=== PATIENT | female | born 1985 | race Caucasian/White ===

== ENCOUNTER 2016-09-22 07:09 | Emergency (ER) | payer BC, OTHER ==
[2016-09-22 07:30] VITALS: BP 110/69
[2016-09-22] MEDS ORDERED: Phenazopyridine TAB* 100 MG PO ONE (07:52)
[2016-09-22] MEDS ORDERED: Sulfamethox/Trimethoprim DS 800/160* TAB PO ONE (07:52)
--- NOTE | 2016-09-22 07:52 | UC ---
Pediatric GI/ HPI - HPI Summary HPI Summary: 31 yo female with frequency/urgency and incontenance x 1 in the past 4 days no fever, some chills mild nausea no vomiting no back pain hx pyelo no vag d/c or itch no dyspareunia - History Of Current Complaint Chief Complaint: UCGU Stated Complaint: UTI Time Seen by Provider: 09/22/16 07:36 Onset/Duration: Gradual Onset Pain Intensity: 0 - hurts when voiding and as bladder starts to fill Pain Scale Used: 0-10 Numeric Location: Discrete At: - suprapubic Associated Signs And Symptoms: Positive: Dysuria - Allergies/Home Medications Allergies/Adverse Reactions: Allergies Allergy/AdvReac Type Severity Reaction Status Date / Time Codeine Allergy Severe Hives Verified 09/22/16 07:21 Home Medications: Home Medications Fexofenadine-Pseudoephedrine [Dora-D 24 Hour Allergy 180-240 mg] 1 tab PO DAILY 09/22/16 [History Confirmed 09/22/16] Multiple Vitamin [Multiple Vitamins] 1 tab PO DAILY 09/22/16 [History Confirmed 09/22/16] Norethindr/Eth Estradiol(Nf) [Lo Loestrin Fe (NF)] 1 tab PO DAILY 09/22/16 [ History Confirmed 09/22/16] Past Medical History Previously Healthy: Yes - Family History Family History of Asthma: No Family History Of Seizure: No Review Of Systems Constitutional: Negative Eyes: Negative ENT: Negative Cardiovascular: Negative Respiratory: Negative Gastrointestinal: Negative Genitourinary: Dysuria Musculoskeletal: Negative Skin: Negative Neurological: Negative Psychological: Negative All Other Systems Reviewed And Are Negative: Yes Physical Exam Triage Information Reviewed: Yes Vital Signs: Initial Vital Signs Temp 98.9 F 09/22/16 07:23 Pulse 67 09/22/16 07:23 Resp 16 09/22/16 07:23 BP 110/69 09/22/16 07:23 Pulse Ox 100 09/22/16 07:23 Vital Signs Reviewed: Yes Appearance: Well-Appearing Eyes: Positive: Conjunctiva Clear ENT: Positive: Hearing grossly normal, TMs normal. Negative: Nasal congestion, Nasal drainage, Muffled/hoarse voice, Dental tenderness Respiratory: Positive: Lungs clear, Normal breath sounds, No respiratory distress, No accessory muscle use Cardiovascular: Positive: RRR, No Murmur Abdomen Description: Negative: Nontender - slight suprapubic tenderness Musculoskeletal: Positive: Strength Intact, ROM Intact Neurological: Positive: Normal Psychological: Positive: Normal Pediatric GI Course/Dx - Differential Dx/Diagnosis Provider Diagnoses: dysuria. suspect UTI Discharge - Discharge Plan Condition: Stable Disposition: HOME Prescriptions: Phenazopyridine TAB* [Pyridium 100 mg TAB*] 100 mg PO TID #6 tab Sulfamethox/Trimethoprim DS* [Bactrim DS 800/160 TAB*] 1 tab PO BID #13 tab Patient Education Materials: Dysuria (ED) Referrals: ODETTE Baez [Primary Care Provider] - 3 Days (if not better) Additional Instructions: I suspect a UTI despite your unremarkable urinalysis a culture is pending recheck for new or worsening symptoms or if not better in 2-3 days
== END 2016-09-22 08:06 | disposition home or self-care (01) ==
LOC: UCCORT 07:09
DX: R30.0 Dysuria (principal); R35.0 Frequency of micturition; Z32.02 Encounter for pregnancy test, result negative; Z88.5 Allergy status to narcotic agent
CPT/HCPCS: 81003; 84702; 87077; 87086; 87186; 99202; A9270-GY; G0463

== ENCOUNTER 2016-12-11 12:52 | Emergency (ER) | payer OTHER ==
[2016-12-11] MEDS ORDERED: Ibuprofen TAB* 600 MG PO ONE (13:24)
--- NOTE | 2016-12-11 13:24 | UC ---
Hand/Wrist HPI - HPI Summary HPI Summary: caught left thumb in a van door at work Laceration across vertical across knuckle of thumb - History Of Current Complaint Chief Complaint: UCUpperExtremity Stated Complaint: HAND INJURY Time Seen by Provider: 12/11/16 13:19 Hx Obtained From: Patient Hx Last Menstrual Period: unknown ?: No Mechanism Of Injury: crush injury left thumb Onset/Duration: Gradual Onset, Lasting Hours, Resolved Severity Initially: Moderate Severity Currently: Moderate Pain Intensity: 6 Pain Scale Used: 0-10 Numeric Character Of Pain: Aching, Throbbing Aggravating Factor(s): Movement Alleviating: Rest, Ice Associated Signs And Symptoms: Positive: Negative Related History: Dominant Hand Right - Allergies/Home Medications Allergies/Adverse Reactions: Allergies Allergy/AdvReac Type Severity Reaction Status Date / Time Codeine Allergy Severe Hives Verified 09/22/16 07:21 PMH/Surg Hx/FS Hx/Imm Hx Previously Healthy: Yes - Surgical History Surgical History: Yes Surgery Procedure, Year, and Place: - Family History Known Family History: Positive: None - Social History Occupation: Employed Full-time Lives: With Family Alcohol Use: None Substance Use Type: None Smoking Status (MU): Former Smoker Have You Smoked in the Last Year: No When Did the Patient Quit Smoking/Using Tobacco: 2012 - Immunization History Most Recent Tetanus Shot: up to date Review of Systems Constitutional: Negative Skin: Negative - 3 cm lacerration to thumb, Other Eyes: Negative ENT: Negative Respiratory: Negative Cardiovascular: Negative Gastrointestinal: Negative Genitourinary: Negative Motor: Negative Neurovascular: Negative Musculoskeletal: Negative Neurological: Negative Psychological: Negative All Other Systems Reviewed And Are Negative: Yes Physical Exam Triage Information Reviewed: Yes Appearance: Well-Appearing, No Pain Distress, Well-Nourished Vital Signs: Initial Vital Signs Temp 98.2 F 12/11/16 13:09 Pulse 98 12/11/16 13:09 Resp 18 12/11/16 13:09 BP 112/91 12/11/16 13:09 Vital Signs Reviewed: Yes Eye Exam: Normal Eyes: Positive: Conjunctiva Clear ENT Exam: Normal ENT: Positive: Normal ENT inspection, Hearing grossly normal. Negative: Nasal congestion, Nasal drainage, Trismus, Muffled/hoarse voice Dental Exam: Normal Neck exam: Normal Neck: Positive: Supple, Nontender Respiratory Exam: Normal Respiratory: Positive: Chest non-tender, No respiratory distress, No accessory muscle use Cardiovascular Exam: Normal Cardiovascular: Positive: RRR, Pulses Normal, Brisk Capillary Refill Musculoskeletal Exam: Normal Musculoskeletal: Positive: Strength Intact, ROM Intact, No Edema Neurological Exam: Normal Neurological: Positive: Alert, Muscle Tone Normal Psychological Exam: Normal Skin Exam: Normal Skin: Positive: Other - 3 cm laceration 1 mm deep, 1 mm wide- Diagnostics - Radiology No standard instances Xray Interpretation: Positive (See Comments) - negative exam Radiology Interpretation Completed By: ED Physician Hand/Wrist Course/Dx - Course Course Of Treatment: steri strip and dressing applied with splint pat rommel well n /m/c intact before and after application, follow with ortho prn - Differential Dx/Diagnosis Differential Diagnosis/HQI/PQRI: Contusion, Fracture, Sprain, Strain Provider Diagnoses: Crush injury with laceration to left thumb Discharge - Discharge Plan Condition: Stable Disposition: HOME Patient Education Materials: Ibuprofen (By mouth), Skin Avulsion (ED), RICE Therapy (ED), Crush Injury (ED) Referrals: ODETTE Baez [Primary Care Provider] - If Needed
--- NOTE | 2016-12-11 14:16 | RAD ---
INDICATION: Right thumb crush injury COMPARISON: None TECHNIQUE: AP, lateral, and oblique views were obtained. FINDINGS: The bony structures, joint spaces, and soft tissues are normal for age. IMPRESSION: NEGATIVE EXAMINATION.
[2016-12-11] MEDS ORDERED: Benzoin Compound STICK TOPICAL ONE (14:29)
[2016-12-11] MEDS ORDERED: Benzoin Compound STICK ONE (14:31)
[2016-12-11 15:23] VITALS: BP 108/86
== END 2016-12-11 15:15 | disposition home or self-care (01) ==
LOC: UCEAST 12:52
DX: S67.02XA Crushing injury of left thumb, initial encounter (principal); Z88.5 Allergy status to narcotic agent; Z87.891 Personal history of nicotine dependence; W23.0XXA Caught, crushed, jammed, or pinched between moving objects, initial encounter
CPT/HCPCS: 99213; A9270-GY; G0463

== ENCOUNTER 2018-07-05 15:14 | Inpatient (IN) | payer OTHER ==
--- NOTE | 2018-07-05 16:33 | PN ---
L&D Outpatient: Visit - Reproductive Information Estimated Due Date: 08/03/18 Gestational Age: 35 Weeks and 6 Days : 2 Para: 1 - Reason for Visit Visit Reason: vaginal bleeding - Antepartal Records Antepartal Record: Reviewed, Complicated by: - prior H/o depression anxiety positive toxicology screen echogenic bowel - Patient History Patient History Significant: Yes Patient History Significant For: depression anxiety migraines ulcers Review of Systems Constitutional: Comfortable CV Complaint: No Respiratory: Shortness of Breath: No Gastrointestinal: No Nausea/Vomiting Genitourinary: No Dysuria, No Bleeding, No Leaking Fluid Musculoskeletal: No Complaint Neurological: No Headache Movement: Normal L&D Outpatient: Exam Vitals - Most Recent: T : 97.2 BP : 123/82 P: 80 RR : 20 - Cervical Exam Cervical Exam: 50/-3 blood on exam glove dark - Abdominal Exam Abdomen Exam: Non-Tender - Membranes Membrane Status: Intact - Ultrasound/Biophysical Profile Ultrasound Status: Radiology Department Full Exam EFM Findings - External Monitor Findings Baseline Heart Rate: 140 External Monitor Findings: Accelerations Present, No Pattern of Variable or Late Decelerations, Variability Moderate L&D Outpatient: Asses/Plan Assessment: Pt 33 yo presents with bleeding spontaneous this AM. Pt denies any leaking of fluid or contractions. Pt with H/o prior section. Plan: Continue Observation - Plan is to have formal US to evluate for abruption and will send in KB along with CBC. GBS sent. Pt agrees to urinalysis and urine drug screen given premature bleeding. Pt notes some achy joints so will also assure not flu positive.
[2018-07-05 16:38] LABS: ABS Basophils 0 10^3/ul (0-0.2); ABS Eosinophils 0.1 10^3/ul (0-0.6); ABS Lymphocytes 1.5 10^3/ul (1.0-4.8); ABS Monocytes 0.5 10^3/ul (0-0.8); ABS Neutrophils 4.9 10^3/ul (1.5-7.7); ABS Nucleated RBC 0 10^3/ul; Eosinophil % 1.3 %; Hematocrit 38 % (33-41); Hemoglobin 12.5 g/dL (12.0-16.0); Lymphocyte % 21.1 %; Mean Corpuscular HGB Conc 33 g/dL (31-36); Mean Corpuscular Hemoglobin 30 pg (27-31); Mean Corpuscular Volume 90 fL (80-97); Mean Platelet Volume 8.7 fL (7.4-10.4); Nucleated Red Blood Cells % 0; Platelet Count 238 10^3/uL (150-450); Red Cell Distribution Width 14 % (10.5-15)
[2018-07-05 16:46] LABS: Urine Appearance Clear; Urine Bacteria Absent (Absent); Urine Bilirubin Negative (Negative); Urine Blood 3+ (Negative); Urine Color Amber; Urine Glucose Negative (Negative); Urine Ketones Negative (Negative); Urine Nitrite Negative (Negative); Urine Protein Negative (Negative); Urine Red Blood Cell Trace(0-2/hpf) (Absent); Urine Specific Gravity 1.003 (1.010-1.030); Urine Squamous Epithelial Cell Present (Absent); Urine Urobilinogen Negative (Negative); Urine White Blood Cell Trace(0-5/hpf) (Absent)
[2018-07-05 16:57] LABS: Influenza A Molecular NEGATIVE (Negative); Influenza B Molecular NEGATIVE (Negative)
[2018-07-05 17:00] LABS: Barbiturates Urine Screen None Detected (None Detect); Benzodiazepine Urine Screen None Detected (None Detect); Urine Cannabinoids Screen None Detected (None Detect)
[2018-07-05] MEDS ORDERED: Lactated Ringers 1000 ML Bag* 1,000 ML IV ONE (21:44)
[2018-07-05] MEDS ORDERED: Buffered Lidocaine 1% SYRIN* 1 ML/SYRINGE INTRADERM ONE (21:44)
[2018-07-05] MEDS ORDERED: Penicillin G Potassium IV* 5,000,000 UNITS in NS 0.9% 100 ML* 100 ML IVPB ONE (22:00)
[2018-07-05] MEDS: Lactated Ringers 1000 ML Bag* 1,000 ML IV SCH (22:07)
--- NOTE | 2018-07-05 22:07 | HP ---
General Information - Reason for Visit vaginal bleeding / positive ROM + - General Information Maternal Age: 33 Grav: 2 Para: 1 SAB: 0 IEA: 0 Estimated Due Date: 08/03/18 Determined By: LMP Gestational Age in Weeks/Days: 35 6/7 Maternal Blood Type and Rh: A Positive - Results this Serology/RPR Result: Non-Reactive Rubella Result: Immune HBsAg Result: Negative HIV Result: Negative Past Medical History Delivery History: Hx C/Section Pertinent Past Medical History: See Records Pertinent Past Surgical History: See Records Pertinent Family History: See Records - Antepartal Records Antepartal Records: Reviewed, Complicated by: - p prom/ prior section Review of Systems Constitutional: Comfortable CV Complaint: No Respiratory: Shortness of Breath: No Gastrointestinal: No Nausea/Vomiting Genitourinary: No Dysuria, No Bleeding, No Leaking Fluid Musculoskeletal: No Complaint Neurological: No Headache Movement: Normal Exam Allergies/Adverse Reactions: Allergies codeine Allergy (Severe, Verified 05/01/18 01:29) Hives T ; 97.2 P ; 90 BP ; 120/70 RR ; 20 Lab Values - Entire Visit: Laboratory Tests 07/05/18 07/05/18 07/05/18 16:15 16:15 16:15 WBC 7.0 RBC 4.20 Hgb 12.5 Hct 38 MCV 90 MCH 30 MCHC 33 RDW 14 Plt Count 238 MPV 8.7 Neut % (Auto) 70.5 Lymph % (Auto) 21.1 [place] % (Auto) 6.8 Eos % (Auto) 1.3 Baso % (Auto) 0.3 Absolute Neuts (auto) 4.9 Absolute Lymphs (auto) 1.5 Absolute Monos (auto) 0.5 Absolute Eos (auto) 0.1 Absolute Basos (auto) 0 Absolute Nucleated RBC 0 Nucleated RBC % 0 Urine Color Salma Urine Appearance Clear Urine pH 7.0 Ur Specific [place] 1.003 L Urine Protein Negative Urine Ketones Negative Urine Blood 3+ A Urine Nitrate Negative Urine Bilirubin Negative Urine Urobilinogen Negative Ur Leukocyte Esterase Negative Urine WBC (Auto) Trace(0-5/hpf) Urine RBC (Auto) Trace(0-2/hpf) Ur Squamous Epith Cells Present A Urine Bacteria Absent Urine Glucose Negative Vag Amniotic Fld Detect Urine Opiates Screen Ur Barbiturates Screen Ur Phencyclidine Scrn Ur Amphetamines Screen U Benzodiazepines Scrn Urine Cocaine Screen U Cannabinoids Screen Influenza A (Rapid) Influenza B (Rapid) KB Hemoglobin 0.000 07/05/18 07/05/18 07/05/18 16:15 16:45 21:20 WBC RBC Hgb Hct MCV MCH MCHC RDW Plt Count MPV Neut % (Auto) Lymph % (Auto) [place] % (Auto) Eos % (Auto) Baso % (Auto) Absolute Neuts (auto) Absolute Lymphs (auto) Absolute Monos (auto) Absolute Eos (auto) Absolute Basos (auto) Absolute Nucleated RBC Nucleated RBC % Urine Color Urine Appearance Urine pH Ur Specific [place] Urine Protein Urine Ketones Urine Blood Urine Nitrate Urine Bilirubin Urine Urobilinogen Ur Leukocyte Esterase Urine WBC (Auto) Urine RBC (Auto) Ur Squamous Epith Cells Urine Bacteria Urine Glucose Vag Amniotic Fld Detect Positive Urine Opiates Screen None detected Ur Barbiturates Screen None detected Ur Phencyclidine Scrn None detected Ur Amphetamines Screen None detected U Benzodiazepines Scrn None detected Urine Cocaine Screen None detected U Cannabinoids Screen None detected Influenza A (Rapid) Negative Influenza B (Rapid) Negative KB Hemoglobin - Measurements Height: 5 ft 9 in Weight: 179 lb Weight in lbs: 179.355244 Body Mass Index (BMI): 26.4 Pre- Weight: 128 lb Weight Gained This : 51 lbs and 0 ozs - Exam Breast: Breast Exam Deferred CVA: No CVA Tenderness Extremities: No Edema Heart: Normal Rhythm/Heart Sounds HEENT: No Significant Findings Lungs: Clear Bilaterally Rectal: Rectal Exam Deferred Reflexes: DTR 2+ Targeted Exam Findings Cervical Exam: 1cm Effacement: 50% Station: -1 Presenting Part: Vertex Membrane Status: SROM Amniotic Fluid Evaluation: Positive ROM Plus EFM Findings - External Monitor Findings Baseline Heart Rate: 140 External Monitor Findings: Accelerations Present, No Pattern of Variable or Late Decelerations, Variability Moderate Contractions: Irregular - mild q 5-7 ' Assessment/Plan - Assessment Pt 33 yo G 2 P 1001 at 35 6/7 weeks with pPROM and unknown GBS with prioir delviery for arrest d/o. Pt desires trial of labor afte section. - Obstetrical Risk Factors Obstetrical Risk Factors: GBS Unknown, - Plan Plan: Antibiotic Prophylaxis, Admit - Anticipate Vaginal Delivery Plan Comment: Pt 33 yo at 35 6/7 weeks with premature rupture of membranes and desires trial of labor after section. Pt accepts risk of thacker bulb use to include infection and accepts risks of trial of labor after section to include but not limited to infection ,bleeding ,need for blood products, uterine rupture and risk of hysterectomy, Pt also acknowledges that risk include permanent negative effect on outcome including poor mental capacity and cerebral palsy. Consent for signed and reviewed for trial of labor after section.
[2018-07-06] MEDS: Lactated Ringers 1000 ML Bag* 1,000 ML IV SCH ×2 (01:00→06:15)
[2018-07-06] MEDS ORDERED: OBEPIDURAL* 250 ML EPIDURAL ONE (01:34)
[2018-07-06] MEDS: Penicillin G Potassium IV* 2,500,000 UNITS in NS 0.9% 100 ML* 100 ML IVPB SCH ×2 (02:08→06:14)
[2018-07-06] MEDS ORDERED: Famotidine TAB* 20 MG PO PRN (04:58)
[2018-07-06] MEDS ORDERED: Lactated Ringers 1000 ML Bag* 500 ML IV PRN (04:58)
[2018-07-06] MEDS ORDERED: Phenylephrine IV* 40 MCG/ML 10 ML SYRINGE IV PUSH PRN ×2 (04:58)
[2018-07-06] MEDS ORDERED: Sodium Citrate/Citric Acid* 15 ML UDC PO PRN (04:58)
[2018-07-06] MEDS ORDERED: Famotidine IV* 10 MG/ML 2 ML (20 mg) IV PRN (04:58)
[2018-07-06] MEDS ORDERED: Lactated Ringers 1000 ML Bag* 1,000 ML IV ONE (04:58)
[2018-07-06] MEDS ORDERED: OBEPIDURAL* 250 ML EPIDURAL SCH (05:00)
[2018-07-06] MEDS ORDERED: Lactated Ringers 1000 ML Bag* 1,000 ML IV SCH ×3 (05:00→11:00)
[2018-07-06] MEDS ORDERED: Oxytocin in LR* 20 UNITS/1,000 ML BAG IVPB ONE (08:52)
[2018-07-06] MEDS ORDERED: Glycerin ADULT SUPP PR PRN (10:40)
[2018-07-06] MEDS ORDERED: OXYTOCIN* 10 UNITS/ML 1 ML VIAL IM ONE (10:40)
[2018-07-06] MEDS ORDERED: Witch Hazel PAD* JAR TOPICAL PRN (10:40)
[2018-07-06] MEDS ORDERED: Dibucaine 1% 28.35 GM TUBE PR PRN (10:40)
--- NOTE | 2018-07-06 10:40 | PROCNOTE ---
[facility] OB: Delivery Note - Delivery A Date of : 07/06/18 Time of : 09:39 [place] Sex: Female Weight at : 4 lb 7 oz Score 1 Minute: 9 Score 5 Minutes: 9 Gestational Age in Weeks and Days at Delivery: 36 Weeks and 0 Days Delivery Method: Spontaneous Vaginal Labor: Spontaneous Did Patient attempt ?: Yes, Successful Amniotic Fluid: Clear Estimated Blood Loss: 400 Anesthesia/Analgesia: CEI for Labor Delivered By: Rebecca Cash - Nursery Level of Nursery: Regular/Bedside - Perineum Perineal Injury: None/Intact Perineal Repair: None - Events Delivery Events of Note: Pitocin Only After Delivery, Full Course of Antibiotics
[2018-07-06] MEDS ORDERED: Oxytocin in LR* 20 UNITS/1,000 ML BAG IVPB SCH (11:00)
[2018-07-06] MEDS ORDERED: Simethicone TAB* 80 MG TAB.CHEW PO SCH (12:30)
[2018-07-06] MEDS ORDERED: Lidocaine 1% INJ* 10 MG/ML 30 ML SDV ONE (13:24)
[2018-07-06] MEDS ORDERED: Lidocaine 1%* 5 ML VIAL ONE (13:26)
[2018-07-06] MEDS: Docusate CAP* 100 MG PO SCH ×2 (14:05→21:27)
[2018-07-06] MEDS: Ibuprofen TAB* 600 MG PO PRN ×2 (14:40→21:27)
[2018-07-06] MEDS: Prenatal Vitamin TAB PO SCH (19:07)
[2018-07-07] MEDS: Acetaminophen TAB* 325 MG PO PRN ×3 (01:52→21:46)
[2018-07-07] MEDS: Ibuprofen TAB* 600 MG PO PRN ×3 (05:27→17:44)
[2018-07-07 08:30] LABS: ABS Basophils 0 10^3/ul (0-0.2); ABS Eosinophils 0.1 10^3/ul (0-0.6); ABS Lymphocytes 1.2 10^3/ul (1.0-4.8); ABS Monocytes 0.4 10^3/ul (0-0.8); ABS Neutrophils 7.5 10^3/ul (1.5-7.7); ABS Nucleated RBC 0 10^3/ul; Eosinophil % 0.6 %; Hematocrit 36 % (33-41); Lymphocyte % 13.5 %; Mean Corpuscular HGB Conc 34 g/dL (31-36); Mean Corpuscular Hemoglobin 30 pg (27-31); Mean Corpuscular Volume 89 fL (80-97); Mean Platelet Volume 8.3 fL (7.4-10.4); Nucleated Red Blood Cells % 0; Platelet Count 220 10^3/uL (150-450); Red Blood Count 4.01 10^6 /uL (3.70-4.87); Red Cell Distribution Width 14 % (10.5-15); White Blood Count 9.2 10^3/uL (3.5-10.8)
[2018-07-07] MEDS ORDERED: Ferrous Gluconate TAB* 324 MG TAB PO SCH (09:00)
[2018-07-07] MEDS: Docusate CAP* 100 MG PO SCH ×3 (09:14→21:46)
[2018-07-07] MEDS: Prenatal Vitamin TAB PO SCH (09:14)
[2018-07-08] MEDS: Ibuprofen TAB* 600 MG PO PRN ×2 (01:15→09:10)
[2018-07-08] MEDS: Acetaminophen TAB* 325 MG PO PRN (06:46)
[2018-07-08 07:49] VITALS: BP 122/85
[2018-07-08] MEDS: Prenatal Vitamin TAB PO SCH (09:10)
[2018-07-08] MEDS: Docusate CAP* 100 MG PO SCH (09:10)
== END 2018-07-08 13:35 | disposition home or self-care (01) | DRG 560 ==
LOC: MCHOBOUT 15:14 → MCHOB 22:02
PROVIDERS: ADMIT Obstetrics & Gynecology; ATTEND Obstetrics & Gynecology
PROC: 10E0XZZ Delivery of Products of Conception, External Approach (ICD-10-PCS; principal; 2018-07-06)
PROC: 4A1HXCZ Monitoring of Products of Conception, Cardiac Rate, External Approach (ICD-10-PCS; 2018-07-06)
DX: O42.013 Preterm premature rupture of membranes, onset of labor within 24 hours of rupture, third trimester (principal); Z37.0 Single live birth; O34.211 Maternal care for low transverse scar from previous cesarean delivery; O43.123 Velamentous insertion of umbilical cord, third trimester; O75.89 Other specified complications of labor and delivery; J32.9 Chronic sinusitis, unspecified; Z88.5 Allergy status to narcotic agent; Z3A.35 35 weeks gestation of pregnancy
CPT/HCPCS: 36415; 76815; 80307; 81003; 81015; 83030; 84112; 85025; 86850; 86900; 86901; 87070; 87086; 88307; A9270-GY; J2540; J2590

== ENCOUNTER 2018-12-25 18:41 | Emergency (ER) | payer OTHER ==
[2018-12-25 18:55] VITALS: BP 125/76
--- NOTE | 2018-12-25 19:09 | UC ---
Skin Complaint HPI - HPI Summary HPI Summary: 33 yo female presents with redness and swelling to left thigh. She tells me that about a week ago she noticed a small red pustule on her left anterior thigh that she squeezed and drained a yellow pus. Since that time the area has gotten more firm and red with some warmth. She has not been applying anything OTC or cool/warm compresses. Denies fever or chills. - History of Current Complaint Chief Complaint: UCSkin Time Seen by Provider: 12/25/18 19:09 Stated Complaint: SKIN COMPLAINT Hx Obtained From: Patient Hx Last Menstrual Period: 12/20/2018 Onset/Duration: Gradual Onset Onset Severity: Mild Current Severity: Moderate Pain Intensity: 5 Pain Scale Used: 0-10 Numeric - Allergy/Home Medications Allergies/Adverse Reactions: Allergies Allergy/AdvReac Type Severity Reaction Status Date / Time codeine Allergy Severe Hives Verified 05/01/18 01:29 Home Medications: Home Medications Escitalopram Oxalate [Lexapro 10 mg] 12/25/18 [History] Multivitamin [One-Daily Multi-Vitamin] 1 each PO 12/25/18 [History] PMH/Surg Hx/FS Hx/Imm Hx Psychological History: Anxiety, Depression - Surgical History Surgical History: Yes Surgery Procedure, Year, and Place: - Family History Known Family History: Positive: None Negative: Cardiac Disease, Hypertension, Diabetes - Social History Occupation: Employed Full-time Lives: With Family Alcohol Use: None Substance Use Type: None Smoking Status (MU): Light Every Day Tobacco Smoker Have You Smoked in the Last Year: No When Did the Patient Quit Smoking/Using Tobacco: 2012 - Immunization History Most Recent Influenza Vaccination: 05/13/18 Most Recent Tetanus Shot: up to date Most Recent Pneumonia Vaccination: never Review of Systems All Other Systems Reviewed And Are Negative: No Constitutional: Positive: Negative Skin: Positive: Rash Respiratory: Positive: Negative Cardiovascular: Positive: Negative Neurological: Positive: Negative Psychological: Positive: Negative Physical Exam - Summary Physical Exam Summary: GENERAL: NAD. WDWN. No pain distress. SKIN: LEFT anterior thigh: Large ~17.0cm area of mild erythema with central 2.0cm oval shaped firmness and slight tenderness. No fluctuance, induration, or open wound, or drainage. NECK: Supple. Nontender. No lymphadenopathy. CHEST: No accessory muscle use. Breathing comfortably and in no distress. CV: Pulses intact. Cap refill <2seconds NEURO: Alert. PSYCH: Age appropriate behavior. Triage Information Reviewed: Yes Vital Signs: Initial Vital Signs Temp 99.5 F 12/25/18 18:48 Pulse 93 12/25/18 18:48 Resp 16 12/25/18 18:48 BP 125/76 12/25/18 18:48 Pulse Ox 98 12/25/18 18:48 Vital Signs Reviewed: Yes Course/Dx - Course Course Of Treatment: Abscess with cellulitis left thigh. Will start her on Augmentin and advised to return if the area comes to a head or becomes more firm/red/tender for I&D - Diagnoses Provider Diagnosis: Abscess of left thigh Discharge ED - Sign-Out/Discharge Documenting (check all that apply): Patient Departure All imaging exams completed and their final reports reviewed: No Studies - Discharge Plan Condition: Stable Disposition: HOME Prescriptions: Amoxicillin/Clavulanate TAB* [Augmentin TAB 875*] 875 mg PO BID #14 tab Patient Education Materials: Cellulitis (DC), Abscess (ED) Referrals: Leonid Franklin PA [Primary Care Provider] - Additional Instructions: If you develop a fever, shortness of breath, chest pain, new or worsening symptoms - please call your PCP or go to the ED immediately. If the area comes to a head or becomes more tense/firm - please return to have this drained - Billing Disposition and Condition Condition: STABLE Disposition: Home
== END 2018-12-25 19:22 | disposition home or self-care (01) ==
LOC: UCEAST 18:41
DX: L02.416 Cutaneous abscess of left lower limb (principal); F41.9 Anxiety disorder, unspecified; F32.9 Major depressive disorder, single episode, unspecified; F17.210 Nicotine dependence, cigarettes, uncomplicated; Z88.5 Allergy status to narcotic agent
CPT/HCPCS: 99212; G0463

== ENCOUNTER 2019-02-20 13:48 | Emergency (ER) | payer OTHER ==
[2019-02-20 13:58] VITALS: BP 116/78
--- NOTE | 2019-02-20 14:07 | UC ---
FLU HPI - HPI Summary HPI Summary: 4 days of worsening congestion, body aches, feverish, cough, sore throat-- children with similar symptoms last week - History of Current Complaint Chief Complaint: UCGeneralIllness Stated Complaint: FLU SYMPTOMS Time Seen by Provider: 02/20/19 14:00 Hx Obtained From: Patient Hx Last Menstrual Period: 02/08/19 ?: No Onset/Duration: Sudden Onset, Lasting Days - 4 Severity Currently: Mild Severity Initially: Mild Pain Intensity: 4 Pain Scale Used: 0-10 Numeric Associated Signs & Symptoms: Positive: Fever, Myalgia, Cough, Sore Throat, Nasal Congestion, Headache - Allergy/Home Medications Allergies/Adverse Reactions: Allergies Allergy/AdvReac Type Severity Reaction Status Date / Time codeine Allergy Severe Hives Verified 02/20/19 13:51 Home Medications: Home Medications Loratadine/Pseudoephedrine [Claritin-D 24 Hour Tablet] 1 tab PO DAILY 02/20/19 [ History Confirmed 02/20/19] Norethindrone-E.estradiol-Iron [Lo Loestrin Fe 1-10 Tablet] 1 each PO DAILY 06/09 [History Confirmed 02/20/19] PMH/Surg Hx/FS Hx/Imm Hx Previously Healthy: No Psychological History: Depression - Surgical History Surgical History: Yes Surgery Procedure, Year, and Place: - Family History Known Family History: Positive: None Negative: Cardiac Disease, Hypertension, Diabetes - Social History Occupation: Employed Full-time Lives: With Family Alcohol Use: None Substance Use Type: None Smoking Status (MU): Light Every Day Tobacco Smoker Amount Used/How Often: 4-5 cigs/ day Have You Smoked in the Last Year: No When Did the Patient Quit Smoking/Using Tobacco: 2012 - Immunization History Most Recent Influenza Vaccination: 05/13/18 Most Recent Tetanus Shot: up to date Most Recent Pneumonia Vaccination: never Review of Systems All Other Systems Reviewed And Are Negative: Yes Constitutional: Positive: Fever, Chills, Fatigue Skin: Positive: Negative Eyes: Positive: Negative ENT: Positive: Sore Throat, Ear Ache, Nasal Discharge, Sinus Congestion, Sinus Pain/Tenderness Respiratory: Positive: Cough Cardiovascular: Positive: Negative Gastrointestinal: Positive: Negative Genitourinary: Positive: Negative Motor: Positive: Negative Neurovascular: Positive: Negative Musculoskeletal: Positive: Arthralgia, Myalgia Neurological: Positive: Headache Psychological: Positive: Negative Is Patient Immunocompromised?: No Physical Exam Triage Information Reviewed: Yes Appearance: No Pain Distress, Well-Nourished, Ill-Appearing - mild Vital Signs: Initial Vital Signs Temp 99.4 F 02/20/19 13:53 Pulse 103 02/20/19 13:53 Resp 18 02/20/19 13:53 BP 116/78 02/20/19 13:53 Pulse Ox 98 02/20/19 13:53 Vital Signs Reviewed: Yes Eye Exam: Normal Eyes: Positive: Conjunctiva Clear ENT Exam: Normal ENT: Positive: Normal ENT inspection, Hearing grossly normal, Pharynx normal, Nasal congestion, Nasal drainage, TMs normal, Sinus tenderness, Uvula midline. Negative: Tonsillar swelling, Tonsillar exudate, Trismus, Muffled voice, Hoarse voice, Dental tenderness Dental Exam: Normal Neck exam: Normal Neck: Positive: Supple, Nontender, No Lymphadenopathy Respiratory Exam: Normal Respiratory: Positive: Chest non-tender, Lungs clear, Normal breath sounds, No respiratory distress, No accessory muscle use Cardiovascular Exam: Normal Cardiovascular: Positive: RRR, No Murmur, Pulses Normal, Brisk Capillary Refill Musculoskeletal Exam: Normal Musculoskeletal: Positive: Strength Intact, ROM Intact, No Edema Neurological Exam: Normal Neurological: Positive: Alert, Muscle Tone Normal Psychological Exam: Normal Skin Exam: Normal Diagnostics - Laboratory Lab Results: Influenza A/B (-) Flu Course/Dx - Course Course Of Treatment: flonase , Augmentin, continue otc medications for sx relief follow with pc prn - Differential Dx/Diagnosis Provider Diagnosis: Acute sinusitis Discharge ED - Sign-Out/Discharge Documenting (check all that apply): Patient Departure All imaging exams completed and their final reports reviewed: No Studies - Discharge Plan Condition: Stable Disposition: HOME Prescriptions: Amoxicillin/Clavulanate TAB* [Augmentin TAB 875*] 875 mg PO BID #20 tab Fluticasone NASAL SPRAY 50MCG* [Flonase NASAL SPRAY 50MCG*] 2 spray BOTH NARES DAILY #1 btl Patient Education Materials: Sinusitis (ED), How to Use Nasal Success (ED) Referrals: Leonid Franklin PA [Primary Care Provider] - If Needed - Billing Disposition and Condition Condition: STABLE Disposition: Home
[2019-02-20 14:21] LABS: Influenza A Molecular NEGATIVE (Negative); Influenza B Molecular NEGATIVE (Negative)
== END 2019-02-20 14:40 | disposition home or self-care (01) ==
LOC: UCEAST 13:48
DX: J01.90 Acute sinusitis, unspecified (principal); R05 Cough; J02.9 Acute pharyngitis, unspecified; M79.10 Myalgia, unspecified site; F17.210 Nicotine dependence, cigarettes, uncomplicated; Z88.5 Allergy status to narcotic agent
CPT/HCPCS: 99212; G0463

== ENCOUNTER 2019-04-21 09:31 | Emergency (ER) | payer OTHER ==
[2019-04-21 09:42] VITALS: BP 107/68
--- NOTE | 2019-04-21 09:55 | UC ---
Throat Pain/Nasal Elliot HPI - HPI Summary HPI Summary: 34 yo woman with 2 day hx of sore throat, dysphagia, chills and sweats. No significant cough. + headache, no vomiting or doarrea. her son had strep last week. Works as a mailing manager. - History of Current Complaint Chief Complaint: UCRespiratory Stated Complaint: SORE THROAT CHILLS BODYACHES Time Seen by Provider: 04/21/19 09:41 Hx Obtained From: Patient Hx Last Menstrual Period: 02/08/19 Onset/Duration: Sudden Onset, Lasting Days - 2 Severity: Moderate Pain Intensity: 8 Cough: None Associated Signs & Symptoms: Positive: Dysphagia, Fever - Epiglottits Risk Factors Epiglottis Risk Factors: Negative - Allergies/Home Medications Allergies/Adverse Reactions: Allergies Allergy/AdvReac Type Severity Reaction Status Date / Time codeine Allergy Severe Hives Verified 04/21/19 09:42 PMH/Surg Hx/FS Hx/Imm Hx Previously Healthy: Yes Psychological History: Depression - Surgical History Surgical History: Yes Surgery Procedure, Year, and Place: - Family History Known Family History: Positive: None, Non-Contributory Negative: Cardiac Disease, Hypertension, Diabetes - Social History Occupation: Employed Full-time Lives: With Family Alcohol Use: None Substance Use Type: None Smoking Status (MU): Light Every Day Tobacco Smoker Amount Used/How Often: 4-5 cigs/ day Have You Smoked in the Last Year: No When Did the Patient Quit Smoking/Using Tobacco: 2012 - Immunization History Most Recent Influenza Vaccination: 05/13/18 Most Recent Tetanus Shot: up to date Most Recent Pneumonia Vaccination: never Review of Systems All Other Systems Reviewed And Are Negative: Yes Constitutional: Positive: Fever, Chills, Fatigue Skin: Positive: Negative Eyes: Positive: Negative ENT: Positive: Sore Throat Respiratory: Positive: Negative Cardiovascular: Positive: Negative Gastrointestinal: Positive: Negative Genitourinary: Positive: Negative Motor: Positive: Negative Neurovascular: Positive: Negative Musculoskeletal: Positive: Myalgia Neurological: Positive: Headache Psychological: Positive: Negative Is Patient Immunocompromised?: No Physical Exam Triage Information Reviewed: Yes Appearance: Ill-Appearing, Thin Vital Signs: Initial Vital Signs Temp 99.7 F 04/21/19 09:38 Pulse 97 04/21/19 09:38 Resp 18 04/21/19 09:38 BP 107/68 04/21/19 09:38 Pulse Ox 96 04/21/19 09:38 ENT: Positive: Pharyngeal erythema, TMs normal, Tonsillar swelling, Tonsillar exudate Neck: Positive: Supple, Nontender, Enlarged Nodes @ - bilateral tonsillar nodes enlarged. Respiratory: Positive: Lungs clear, Normal breath sounds Cardiovascular: Positive: RRR, No Murmur Musculoskeletal Exam: Normal Neurological Exam: Normal Psychological Exam: Normal Skin Exam: Normal Diagnostics - Laboratory Lab Results: rapid strep positive Throat Pain/Nasal Course/Dx - Course Course Of Treatment: amoxcillin for treatment of strep throat. - Differential Dx/Diagnosis Differential Diagnosis/HQI/PQRI: Pharyngitis, Tonsillitis, Other - strep Provider Diagnosis: Strep tonsillitis Discharge ED - Sign-Out/Discharge Documenting (check all that apply): Patient Departure All imaging exams completed and their final reports reviewed: No Studies - Discharge Plan Condition: Stable Disposition: HOME Prescriptions: Amoxicillin PO (*) [Amoxicillin 875 MG (*)] 875 mg PO BID #20 tab Patient Education Materials: Strep Throat (ED) Forms: *Work Release Referrals: Leonid Franklin PA [Primary Care Provider] - Additional Instructions: Take the full course of amoxicillin. Follow up if you have persistent fever or continued or worsening sore throat. Use ibuprofen 600mg every 6 hours as needed for control of pain, and you can use warm water and salt gargles. - Billing Disposition and Condition Condition: STABLE Disposition: Home
== END 2019-04-21 10:04 | disposition home or self-care (01) ==
LOC: UCEAST 09:31
DX: J03.00 Acute streptococcal tonsillitis, unspecified (principal); R53.83 Other fatigue; F17.210 Nicotine dependence, cigarettes, uncomplicated; Z88.5 Allergy status to narcotic agent
CPT/HCPCS: 87651; 99212; G0463

== ENCOUNTER 2019-05-29 09:30 | Emergency (ER) | payer SELFPAY ==
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
--- OUTSIDE RECORDS SUMMARY | 2019-05-29 09:38 | XMS REPORT ---
:1985 Author Organization [facility] Care Team Providers Name Role Phone Shefali Garcia Primary Care Physician Unavailable Allergies, Adverse Reactions, Alerts Allergy Code CodeSystem Reaction Severity Criticality Status Start Substance Date Moderate Medications Medication Medication Medication Start Stop Route Dose Status Fill Code CodeSystem Date Date Instructions escitalopram 964384 RxNorm 2019- oral 20 mg active for 30 oxalate 7-25 10-23 tablet day(s) Lexapro 678779 RxNorm 2019- oral 20 mg 1 completed Take 1 tablet - 07-25 tablet once a day once a for 30 day(s) day Lexapro 293624 RxNorm 2019- oral 10 mg 1 completed Take 1 tablet 4- 05-03 tablet by mouth once once a a day for 7 day day(s) Xanax 627308 RxNorm 2019- oral 0.25 mg completed for 15 6-13 06-28 tablet day(s) Xanax 687343 RxNorm 2019- 2019- oral 0.25 mg completed for 15 4-26 05-11 tablet day(s) Problems Problem Name Code CodeSystem Alternate Alternate Start End Status Narrative Code CodeSystem Date Date Generalized 00135848 SNOMED-CT Active anxiety 4-12 disorder Tobacco use 22622799 SNOMED-CT Active 4-12 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, recurrent, in partial remission Relevant diagnostic tests/laboratory data Narrative No Information Procedures Procedure Code CodeSystem Target Date of Status Service Device Device Device Name Site Procedure Delivery Code Name UID Location Psychotherap [id number] SNOMED-CT () 2018-10-01 complete Mental y, 30 87 d Health- minutes with Ana patient when [facility] performed [place] with an [address] [facility] [address], and [facility], service [id number] (List [id number] separately in addition to the code for primary procedure) Psychotherap 177396 SNOMED-CT () 2019-02-12 complete Mental y, 45 04 d Health- minutes with [place] patient [address], [id number] [id number] Psychotherap [id number] SNOMED-CT () 2018-10-09 complete Mental y, 45 04 d Health- minutes with Ana patient [address], [id number] Psychotherap [id number] SNOMED-CT () 2018-11-12 complete Mental y, 45 04 d Health- minutes with Ana patient [address], [id number] Preventive 783352 SNOMED-CT () 2018-10-01 complete Mental medicine 1 d Health- counseling Ana and/or risk [address], (s) provided [place], to an [place], individual [id number] (separate [id number] procedure); approximatel y 30 minutes Office or [id number] SNOMED-CT () 2018-10-01 complete Mental other 7 d Health- outpatient Ana visit for [address], of an [place], established [phone] patient, [phone] which requires at least 2 of these 3 cortés components: An expanded problem focused history; An expanded problem focused examination; Medical decision making of low Office or 033874 SNOMED-CT () 2018-11-12 complete Mental other 7 d Health- outpatient Ana visit for [address], of [facility], established [id number] patient, [phone] which requires at least 2 of these 3 cortés components: An expanded problem focused history; An expanded problem focused examination; Medical decision making of low Office or 288341 SNOMED-CT () 2019-01-19 complete Mental other 7 d Health- outpatient Ana visit for [address], of [facility], established [id number] patient, [phone] which requires at least 2 of these 3 cortés components: An expanded problem focused history; An expanded problem focused examination; Medical decision making of low Office or 771190 SNOMED-CT () 2019-03-26 complete Mental other 6 d Health- outpatient [place] visit for [address], [facility], [facility] [id number] patient, [phone] which requires at least 2 of these 3 cortés components: A problem focused history; A problem focused examination; Straightforw stephanie medical decision making. Counselin Office or [id number] SNOMED-CT () 2018-08-14 complete Mental other 8 d Health- outpatient Ana visit for [address], [facility], [facility] [id number] patient, [phone] which requires at least 2 of these 3 cortés components: A detailed history; A detailed examination; Medical decision making of moderate complexity. Counseling and/o SNOMED-CT () 2019-03-26 complete Mental d Health- [address], [id number] [phone] Encounters/Encounter Diagnoses Encounter Name Encounter Diagnosis Diagnosis Diagnosis Date of Service Code Code Name CodeSystem Diagnosis Delivery Location [facility] [id number] Major SNOMED-CT 2019-03-26 Behavioral Established depressive Health patient 10 disorder, Clinic , , Minutes recurrent, , in partial remission Vital Signs No Information Social History Element Description Description Start End Code CodeSystem AdditionalInfo Date Date SexAssignedAtBirth Female 1984-04 F AdministrativeGender - Hospital Discharge Instructions Reason For Referral Medical Equipment FDA Assessments
[2019-05-29 10:27] VITALS: BP 109/71
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
== END 2019-05-29 11:32 | disposition home or self-care (01) ==
LOC: UCEAST 09:30
DX: S29.9XXA Unspecified injury of thorax, initial encounter (principal); V47.5XXA Car driver injured in collision with fixed or stationary object in traffic accident, initial encounter; Y92.9 Unspecified place or not applicable; F17.210 Nicotine dependence, cigarettes, uncomplicated; Z88.5 Allergy status to narcotic agent
CPT/HCPCS: 99212; G0463